=== PATIENT | male | born 1995 | race Caucasian/White ===

== ENCOUNTER 2018-04-21 20:45 | Emergency (ER) | payer OTHER ==
[~2018-04-21] VITALS: Ht 172.7 cm; Wt 124.7 kg
--- NOTE | 2018-04-21 21:00 | NUR ---
Pt BIBSELF FROM HOME S/P L HAND LACERATION OF THE 2ND & 3RD DIGITS. PER Pt STATEMENT WAS USING A DRILL AT HOME. NO ACTIVE BLEEDING NOTED. -TDAP. NO S/S OF ACUTE DISTRESS OR SOB NOTED. VS STABLE. BEING SEEN BY MD AT BEDSIDE.
[2018-04-21] MEDS ORDERED: LIDOCAINE /MPF 1% VIAL 5 ML VIAL ONE (21:18)
[2018-04-21] MEDS ORDERED: TDAP [DIPH/PERTUSSIS/TET] 0.5 ML VIAL IM ONE ×2 (21:30→22:16)
[2018-04-21] MEDS ORDERED: LIDOCAINE 1% INJ 50 ML MDV IJ ONE (21:30)
[2018-04-21] MEDS ORDERED: IBUPROFEN 400 MG TABLET ONE (22:16)
[2018-04-21] MEDS ORDERED: CEPHALEXIN MONOHYDRATE 500 MG CAPSULE PO ONE ×2 (22:16→22:30)
[2018-04-21] MEDS ORDERED: IBUPROFEN 400 MG TABLET PO ONE (22:30)
[2018-04-21 22:40] VITALS: BP 128/72
--- NOTE | 2018-04-21 22:41 | NUR ---
PT OK TO DISCHARGE PER [employer]. Patient discharged to home in stable condition. Written and verbal after care instructions given. Patient verbalizes understanding of instruction.Patient is awake and alert to self, day, and place. PT ambulatory with a steady gait
== END 2018-04-21 22:41 | disposition home or self-care (01) ==
LOC: ER 20:48
DX: S61.211A Laceration without foreign body of left index finger without damage to nail, initial encounter (principal); S60.413A Abrasion of left middle finger, initial encounter; J45.909 Unspecified asthma, uncomplicated; Z23 Encounter for immunization; W29.8XXA Contact with other powered hand tools and household machinery, initial encounter; Y93.89 Activity, other specified; Y92.89 Other specified places as the place of occurrence of the external cause; Y99.8 Other external cause status
CPT/HCPCS: 73130-TC; 90715; A4606; A6402; J3490; Z7610

== ENCOUNTER 2018-05-03 18:46 | Emergency (ER) | payer OTHER ==
[~2018-05-03] VITALS: Ht 172.7 cm; Wt 127.0 kg
[2018-05-03 18:46] VITALS: BP 115/68
== END 2018-05-03 19:22 | disposition home or self-care (01) ==
LOC: ER 18:48
DX: S61.211D Laceration without foreign body of left index finger without damage to nail, subsequent encounter (principal); J45.909 Unspecified asthma, uncomplicated; X58.XXXD Exposure to other specified factors, subsequent encounter
CPT/HCPCS: A4606; Z7610

== ENCOUNTER 2018-05-06 10:18 | Emergency (ER) | payer OTHER ==
[~2018-05-06] VITALS: Ht 172.7 cm; Wt 124.7 kg
[2018-05-06 10:22] VITALS: BP 152/79
--- NOTE | 2018-05-06 11:02 | NUR ---
Patient discharged to home in stable condition. Written and verbal after care instructions given. Patient verbalizes understanding of instruction.
== END 2018-05-06 11:01 | disposition home or self-care (01) ==
LOC: ER 10:24
DX: S61.211D Laceration without foreign body of left index finger without damage to nail, subsequent encounter (principal); J45.909 Unspecified asthma, uncomplicated; X58.XXXD Exposure to other specified factors, subsequent encounter
CPT/HCPCS: 99281; A4606; Z7610; Z7502